=== PATIENT | female | born 1975 | race American Indian/Alaskan Native ===

== ENCOUNTER 2018-05-11 22:43 | Emergency (ER) | payer MEDICAID ==
[2018-05-11 22:54] VITALS: BP 129/53
[2018-05-11] MEDS ORDERED: TYLENOL ONE (23:11)
[2018-05-11] MEDS ORDERED: ASPIRIN PO ONE (23:12)
[2018-05-11] MEDS ORDERED: TYLENOL PO ONE (23:13)
[2018-05-12 00:06] LABS: BUN/Creatinine Ratio 17; Blood Urea Nitrogen 10 mg/dL (7-17); Calcium 8.9 mg/dL (8.4-10.2); Hemolysis Index 0
[2018-05-12 00:54] LABS: Hematocrit 21.6 % (30.3-42.9); Hemoglobin 6.3 gm/dl (10.1-14.3); Mean Corpuscular HGB Conc 29 % (30-34); Platelet Count 526 K/mm3 (140-440); Red Blood Count 4.04 M/mm3 (3.65-5.03)
[2018-05-12 00:57] LABS: Mean Corpuscular Hemoglobin 16 pg (28-32); Mean Corpuscular Volume 53 fl (79-97); Red Cell Distribution Width 21.2 % (13.2-15.2)
[2018-05-12 03:50] LABS: Band Neutrophils # (Manual) 0.1 K/mm3; Basophils % (Manual) 0 % (0.0-1.8); Total Cells Counted 100
[2018-05-12 03:51] LABS: Anisocytosis 2+; Hypochromasia 2+; Platelet Estimate Consistent w Auto
== END 2018-05-12 00:15 | disposition left against medical advice (07) ==
LOC: ED 22:43
DX: R07.9 Chest pain, unspecified (principal); R13.10 Dysphagia, unspecified; R11.0 Nausea; Z53.21 Procedure and treatment not carried out due to patient leaving prior to being seen by health care provider
CPT/HCPCS: 36415; 80048; 84484; 84703; 85007; 85025; 93005; 93010

== ENCOUNTER 2019-05-17 10:57 | Emergency (ER) | payer MEDICAID, OTHER ==
[2019-05-17 12:36] VITALS: BP 113/81
[2019-05-17] MEDS ORDERED: IBUPROFEN PO ONE (12:36)
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
== END 2019-05-17 14:45 | disposition home or self-care (01) ==
LOC: ED 10:57
DX: S16.1XXA Strain of muscle, fascia and tendon at neck level, initial encounter (principal); S39.012A Strain of muscle, fascia and tendon of lower back, initial encounter; V89.2XXA Person injured in unspecified motor-vehicle accident, traffic, initial encounter; Y93.89 Activity, other specified; Y92.410 Unspecified street and highway as the place of occurrence of the external cause; Y99.8 Other external cause status
CPT/HCPCS: 72040; 72100